=== PATIENT | male | born 1945 | race Caucasian/White ===

== ENCOUNTER 2016-08-14 13:06 | Inpatient (IN) | payer OTHER ==
[~2016-08-14] VITALS: Ht 175.3 cm; Wt 160.0 kg
[~2016-08-14 13:06] MED LIST: ADULT LOW DOSE81 M1 PO; ATORVASTATIN CA20 MG PO; CELEBREX200 MG PO; CITRUCEL500 MG PO; COL-RITE100 M1 PO; COUMADIN1 MG PO; DOCUSATE SODIU100 MG PO; FERROUS SULFAT325 MG PO; FIBER1 GM PO; FLUTICASONE PRO16 GM BOTH NARES; FUROSEMIDE20 MG PO; FUROSEMIDE40 MG PO; GLUCOPHAGE XR,500 MG PO; K-DUR20 MEQ PO; K-TAB10 MEQ PO; KLOR-CON 1010 ME1 PO; LISINOPRIL-HCT1 EAC3 PO; LORATADINE10 M2 PO; LORTAB 5-325 M1 EACH PO; LOVENOX40 MG/0.4 SC; MEN'S MULTI-VI1 EACH PO; METFORMIN HCL500 MG PO; METOPROLOL TART50 MG PO; MOTRIN600 MG PO; NOVOLOG PE100 UNITS/ SC; OXYCODONE HCL5 MG PO; PRAVASTATIN SOD80 MG PO; ROCEPHIN2 GM/50 ML IV; SENNA-TIME S T1 EACH PO; TRAMADOL HCL50 MG PO; ZESTORETIC 20-1 EAC1 NG; [UNRECOGNIZED DRUG - OTHER] PO
[2016-08-14 14:04] LABS: EOSINOPHIL (%) 0 % (0-5); HEMATOCRIT 40.3 % (38.0-50.0); IMMATURE GRANULOCYTE (%) 0.7 % (0.0-0.7); IMMATURE GRANULOCYTE COUNT 0.1 K/uL; INSTRUMENT ABS NEUTROPHIL CT 17.8 K/uL; LYMPHOCYTE COUNT 0.6 K/uL (1.0-2.8); MCH 30.1 PG (29.0-34.0); MCV 88.6 FL (86-99); MONOCYTE (%) 3.6 % (3-12); MONOCYTE COUNT 0.7 K/uL (0-0.8); NEUTROPHIL (%) 92.6 % (45-76); NEUTROPHIL COUNT 17.8 K/uL (1.8-6.4); PLATELET COUNT 265 K/uL (156-360); RBC DIS.WIDTH-SD 38.5 % (39-53); RED BLOOD COUNT 4.55 M/uL (4.00-5.50); WHITE BLOOD COUNT 19.2 K/uL (4.1-10.2)
[2016-08-14 14:11] LABS: ADD MIUA? YES; BILIRUBIN NEGATIVE; BLOOD SMALL; COLOR YELLOW ((YELLOW)); GLUCOSE (STRIP) 50; INFLUENZA A VIRAL ANTIGEN NEGATIVE; INFLUENZA B VIRAL ANTIGEN NEGATIVE; KETONES 5; LEUKOCYTES LARGE; NITRITE NEGATIVE; PROTEIN (STRIP) 100; SPECIFIC GRAVITY 1.012 (1.000-1.030); UROBILINOGEN 0.2 MG/DL (0.2-1.0)
[2016-08-14 14:20] LABS: CHLORIDE 94 mEq/L (99-109); POTASSIUM 3.6 mEq/L (3.7-5.4); SODIUM 133 mEq/L (136-147)
[2016-08-14 14:22] LABS: GLUCOSE 204 mg/dL (70-99)
[2016-08-14 14:23] LABS: ANION GAP 14 MEQ/L (2-14)
[2016-08-14 14:24] LABS: TOTAL BILIRUBIN 1.7 mg/dL (0.0-1.0)
[2016-08-14 14:26] LABS: ALKALINE PHOSPHATASE 65 IU/L (3-129); GFR ESTIMATE (CALCULATED) > 59 mL/min/
[2016-08-14 14:27] LABS: UREA NITROGEN (BUN) 12 mg/dL (9-23)
[2016-08-14 14:27] LABS: BACTERIA 3+ /HPF; EPITHELIAL CELLS NONE SEEN /HPF; MUCUS NONE SEEN /LPF; RED BLOOD CELLS 0-5 /HPF (0-5); UCUL ADDED? YES; WHITE BLOOD CELLS TNTC /HPF (0-5); WHITE BLOOD CELLS CLUMP FEW /HPF (0-5)
[2016-08-14 14:29] LABS: LIPASE 11 U/L (1.0-51.0)
[2016-08-14] MEDS ORDERED: ZESTORETIC 20-1 EAC1 PO (16:10)
[2016-08-14] MEDS ORDERED: VITAMIN B-6100 MG PO (16:11)
[2016-08-14] MEDS ORDERED: ZINC50 M2 PO (16:11)
[2016-08-14] MEDS ORDERED: VITAMIN A8000 UNIT PO (16:11)
[2016-08-14] MEDS ORDERED: STOOL SOFTENER100 M1 PO (16:12)
[2016-08-14] MEDS ORDERED: FIBER THERAPY500 MG PO (16:13)
[2016-08-14] MEDS ORDERED: METFORMIN HCL500 M1 PO (16:14)
[2016-08-14] MEDS ORDERED: TRAMADOL HCL50 MG PO (16:16)
[2016-08-14] MEDS ORDERED: ALEVE220 MG PO (16:16)
[2016-08-14] MEDS ORDERED: MUCINEX600 MG PO (16:17)
[2016-08-14] MEDS ORDERED: CLARITIN,ALAVAR10 MG PO (16:17)
[2016-08-14] MEDS ORDERED: HYDROXYZINE HCL25 MG PO (16:18)
[2016-08-14] MEDS ORDERED: [UNRECOGNIZED DRUG - OTHER] TP (16:20)
[2016-08-14] MEDS ORDERED: AFRIN,GENASAL D15 ML BOTH NARES (16:20)
[2016-08-14] MEDS ORDERED: AQUAPHOR W-NAT50 GM TP (16:20)
[2016-08-14] MEDS ORDERED: EYE DROPS15 M1 BOTH EYES (16:21)
[2016-08-14 17:56] VITALS: BP 135/75
[2016-08-14 17:56] LABS: Estimated Average Glucose 194 mg/dL (70-123); HEMOGLOBIN A1c (GLYCOHEMOGLOB) 8.4 % HGB (Below 5.7)
[2016-08-14 18:02] VITALS: BP 135/75
[2016-08-14 20:00] VITALS: BP 136/65
[2016-08-14 21:24] LABS: POINT-OF-CARE METER ID UU14188625
[2016-08-14 23:40] VITALS: BP 136/70
[2016-08-15] VITALS (12 sets, daily range): BP systolic 107–142; BP diastolic 50–72
[2016-08-15 07:44] LABS: HEMATOCRIT 37.5 % (38.0-50.0); MCH 30.6 PG (29.0-34.0); MCHC 33.9 G/DL (30.0-36.0); MCV 90.4 FL (86-99); MEAN PLAT.VOLUME 9.9 uM^3 (9.0-12.4); PLATELET COUNT 243 K/uL (156-360); RBC DIS.WIDTH-CV 12.4 % (11.8-14.6); RBC DIS.WIDTH-SD 40.5 % (39-53); RED BLOOD COUNT 4.15 M/uL (4.00-5.50)
[2016-08-15 08:53] LABS: ANION GAP 11 MEQ/L (2-14); CHLORIDE 97 MEQ/L (99-109); GFR ESTIMATE (CALCULATED) > 59 mL/min/; GLUCOSE 156 mg/dL (70-99); POTASSIUM 3.6 MEQ/L (3.7-5.4); SAMPLE HEMOLYSIS CHECK 0; SAMPLE ICTERIC CHECK 0; SAMPLE LIPEMIA CHECK 0; SODIUM 135 MEQ/L (136-147); UREA NITROGEN (BUN) 12 mg/dL (9-23)
[2016-08-15 13:13] LABS: BASE EXCESS -0.1 mEq/L (-3 to +3); BICARBONATE 26.4 mEq/L (22-26); CARBOXY HGB 2.5 % (0-5); COMMENTS - BLOOD GASES A+C+; METHEMOGLOBIN 1.5 % (0-1.5); PCO2 49 mm Hg (35-45); PO2 116 mm Hg (80-100); SITE LRA; pH 7.34 (7.35-7.45)
[2016-08-15 13:14] LABS: DEVICE NRBR; O2 FLOW 15 L/MIN; TOTAL RESP RATE 36 resp/min
[2016-08-15 13:15] LABS: POINT-OF-CARE METER ID UU14188625
[2016-08-15 13:25] LABS: MCH 29.8 PG (29.0-34.0); MCHC 32.4 G/DL (30.0-36.0); MCV 91.9 FL (86-99); MEAN PLAT.VOLUME 9.2 uM^3 (9.0-12.4); PLATELET COUNT 257 K/uL (156-360); RBC DIS.WIDTH-CV 12.6 % (11.8-14.6); RBC DIS.WIDTH-SD 42.5 % (39-53); RED BLOOD COUNT 4.46 M/uL (4.00-5.50); WHITE BLOOD COUNT 14.9 K/uL (4.1-10.2)
[2016-08-15 13:47] LABS: ANION GAP 8 MEQ/L (2-14); CHLORIDE 97 MEQ/L (99-109); GFR ESTIMATE (CALCULATED) > 59 mL/min/; GLUCOSE 163 mg/dL (70-99); POTASSIUM 3.9 MEQ/L (3.7-5.4); SAMPLE HEMOLYSIS CHECK 0; SAMPLE ICTERIC CHECK 0; SAMPLE LIPEMIA CHECK 0; SODIUM 134 MEQ/L (136-147); UREA NITROGEN (BUN) 14 mg/dL (9-23)
[2016-08-15 16:45] LABS: METH RESISTANT S AUREUS PCR POSITIVE (NEGATIVE); PROBE CHECK PASS
[2016-08-15 21:59] LABS: POINT-OF-CARE METER ID UU13113803
[2016-08-16] VITALS (8 sets, daily range): BP systolic 125–159; BP diastolic 59–93
[2016-08-16 05:55] LABS: EOSINOPHIL (%) 1.1 % (0-5); EOSINOPHIL COUNT 0.1 K/uL (0-0.3); HEMATOCRIT 35.4 % (38.0-50.0); IMMATURE GRANULOCYTE (%) 0.5 % (0.0-0.7); IMMATURE GRANULOCYTE COUNT 0.1 K/uL; INSTRUMENT ABS NEUTROPHIL CT 8.8 K/uL; LYMPHOCYTE COUNT 1.4 K/uL (1.0-2.8); MCH 29.6 PG (29.0-34.0); MCHC 32.8 G/DL (30.0-36.0); MCV 90.3 FL (86-99); MEAN PLAT.VOLUME 9.3 uM^3 (9.0-12.4); MONOCYTE COUNT 0.7 K/uL (0-0.8); NEUTROPHIL (%) 79.6 % (45-76); NEUTROPHIL COUNT 8.8 K/uL (1.8-6.4); PLATELET COUNT 208 K/uL (156-360); RBC DIS.WIDTH-CV 12.5 % (11.8-14.6); RBC DIS.WIDTH-SD 41.1 % (39-53); RED BLOOD COUNT 3.92 M/uL (4.00-5.50)
[2016-08-16 06:14] LABS: ANION GAP 7 MEQ/L (2-14); CHLORIDE 98 MEQ/L (99-109); GFR ESTIMATE (CALCULATED) > 59 mL/min/; GLUCOSE 194 mg/dL (70-99); SAMPLE HEMOLYSIS CHECK 0; SAMPLE ICTERIC CHECK 0; SAMPLE LIPEMIA CHECK 0; SODIUM 137 MEQ/L (136-147); UREA NITROGEN (BUN) 17 mg/dL (9-23)
[2016-08-16 06:15] LABS: POTASSIUM 2.9 MEQ/L (3.7-5.4)
[2016-08-16 12:43] LABS: POINT-OF-CARE METER ID UU13113731
[2016-08-16 18:03] LABS: POINT-OF-CARE METER ID UU13113731
[2016-08-16 20:51] LABS: POINT-OF-CARE METER ID UU13113731
[2016-08-17] VITALS: BP 152/82
[2016-08-17 04:54] VITALS: BP 159/85
[2016-08-17 06:11] LABS: BASOPHIL COUNT 0.1 K/uL (0-0.1); EOSINOPHIL (%) 3.3 % (0-5); EOSINOPHIL COUNT 0.3 K/uL (0-0.3); HEMATOCRIT 38.4 % (38.0-50.0); IMMATURE GRANULOCYTE (%) 0.5 % (0.0-0.7); IMMATURE GRANULOCYTE COUNT 0.1 K/uL; INSTRUMENT ABS NEUTROPHIL CT 6.8 K/uL; MCH 29.3 PG (29.0-34.0); MCHC 32.8 G/DL (30.0-36.0); MCV 89.3 FL (86-99); MEAN PLAT.VOLUME 9.7 uM^3 (9.0-12.4); MONOCYTE (%) 5.9 % (3-12); MONOCYTE COUNT 0.6 K/uL (0-0.8); NEUTROPHIL (%) 69.6 % (45-76); NEUTROPHIL COUNT 6.8 K/uL (1.8-6.4); PLATELET COUNT 230 K/uL (156-360); RBC DIS.WIDTH-CV 12.4 % (11.8-14.6); WHITE BLOOD COUNT 9.8 K/uL (4.1-10.2)
[2016-08-17 06:32] LABS: ANION GAP 10 MEQ/L (2-14); CHLORIDE 93 MEQ/L (99-109); GFR ESTIMATE (CALCULATED) > 59 mL/min/; GLUCOSE 188 mg/dL (70-99); MAGNESIUM 1.4 mg/dl (1.3-2.7); POTASSIUM 2.9 MEQ/L (3.7-5.4); SAMPLE HEMOLYSIS CHECK 0; SAMPLE ICTERIC CHECK 0; SAMPLE LIPEMIA CHECK 0; SODIUM 133 MEQ/L (136-147); UREA NITROGEN (BUN) 18 mg/dL (9-23)
[2016-08-17 07:31] VITALS: BP 158/84
[2016-08-17 09:40] LABS: POINT-OF-CARE METER ID UU13113698
[2016-08-17 11:07] VITALS: BP 149/87
[2016-08-17 11:57] LABS: POINT-OF-CARE METER ID UU13113698
[2016-08-17 16:18] VITALS: BP 151/90
[2016-08-17 20:47] VITALS: BP 172/79
[2016-08-17 21:31] LABS: POINT-OF-CARE METER ID UU14174225
[2016-08-18 00:17] VITALS: BP 173/87
[2016-08-18 04:08] VITALS: BP 140/75
[2016-08-18 08:06] VITALS: BP 143/90
[2016-08-18 08:35] LABS: POINT-OF-CARE METER ID UU14188625
[2016-08-18 13:45] VITALS: BP 155/93
[2016-08-18 16:58] LABS: POINT-OF-CARE METER ID UU14188625
[2016-08-18 19:37] VITALS: BP 165/68
[2016-08-18 21:41] LABS: POINT-OF-CARE METER ID UU14188625
[2016-08-19 00:36] VITALS: BP 153/80
[2016-08-19 04:21] VITALS: BP 151/77
[2016-08-19 11:24] LABS: ANION GAP 10 MEQ/L (2-14); CHLORIDE 95 MEQ/L (99-109); GFR ESTIMATE (CALCULATED) > 59 mL/min/; GLUCOSE 272 mg/dL (70-99); SAMPLE HEMOLYSIS CHECK 0; SAMPLE ICTERIC CHECK 0; SAMPLE LIPEMIA CHECK 0; SODIUM 134 MEQ/L (136-147); UREA NITROGEN (BUN) 14 mg/dL (9-23)
[2016-08-19 11:25] LABS: POTASSIUM 3.7 MEQ/L (3.7-5.4)
[2016-08-19] MEDS ORDERED: ATORVASTATIN CA20 MG PO (11:54)
[2016-08-19] MEDS ORDERED: FLORASTOR250 MG PO (11:55)
[2016-08-19] MEDS ORDERED: ZINC OXIDE56.7 GM TP (11:56)
[2016-08-19] MEDS ORDERED: BACTROBAN OINTM22 GM TP (11:56)
[2016-08-19] MEDS ORDERED: BACTRIM,SEPT1 TABLET PO (15:39)
== END 2016-08-19 17:31 | disposition home health service (06) | DRG 871 ==
LOC: EME 13:06 → 5SOUTH 15:32 → 4WEST 15:32 → EDOF 15:32 → 5SOUTH 17:35 → 4WEST 08-15 14:31 → 4SOUTH 08-17 03:18 → 5SOUTH 08-17 16:00
PROVIDERS: Emergency Medicine; Internal Medicine; Student in an Organized Health Care Education/Training Program
DX: A41.9 Sepsis, unspecified organism (principal); R65.20 Severe sepsis without septic shock; J96.01 Acute respiratory failure with hypoxia; J81.0 Acute pulmonary edema; N39.0 Urinary tract infection, site not specified; L03.115 Cellulitis of right lower limb; B95.62 Methicillin resistant Staphylococcus aureus infection as the cause of diseases classified elsewhere; E87.6 Hypokalemia; E87.1 Hypo-osmolality and hyponatremia; I87.313 Chronic venous hypertension (idiopathic) with ulcer of bilateral lower extremity; L97.911 Non-pressure chronic ulcer of unspecified part of right lower leg limited to breakdown of skin; L97.921 Non-pressure chronic ulcer of unspecified part of left lower leg limited to breakdown of skin; L89.322 Pressure ulcer of left buttock, stage 2; G93.41 Metabolic encephalopathy; G47.33 Obstructive sleep apnea (adult) (pediatric); I51.7 Cardiomegaly; I89.0 Lymphedema, not elsewhere classified; E11.9 Type 2 diabetes mellitus without complications; M54.5 Low back pain; G89.29 Other chronic pain; N31.9 Neuromuscular dysfunction of bladder, unspecified; N40.1 Benign prostatic hyperplasia with lower urinary tract symptoms; R33.8 Other retention of urine; M81.0 Age-related osteoporosis without current pathological fracture; E78.5 Hyperlipidemia, unspecified; I10 Essential (primary) hypertension; E66.01 Morbid (severe) obesity due to excess calories; Z68.42 Body mass index [BMI] 45.0-49.9, adult; M19.90 Unspecified osteoarthritis, unspecified site; Z96.641 Presence of right artificial hip joint
CPT/HCPCS: 36600; 71010; 71020; 80048; 80048 91; 80053; 80202; 81003; 82803; 82948; 83036; 83605; 83690; 83735; 84132 91; 85025; 85027; 87040; 87070; 87075; 87077; 87086; 87147; 87186; 87205; 87502; 87641; 93005; 93306; 93970; 94799; 99281; 99285; J0690; J0692; J0696; J1644; J1815; J1940; J2270; J3370; J7030; J7050; Q0177

== ENCOUNTER 2017-11-08 06:46 | Emergency (ER) | payer OTHER ==
[~2017-11-08] VITALS: Ht 180.3 cm; Wt 144.2 kg
[~2017-11-08 06:46] MED LIST changes: +AFRIN,GENASAL D15 ML BOTH NARES; +ALEVE220 MG PO; +AQUAPHOR W-NAT50 GM TP; +BACTRIM,SEPT1 TABLET PO; +BACTROBAN OINTM22 GM TP; +CLARITIN,ALAVAR10 MG PO; +EYE DROPS15 M1 BOTH EYES; +FIBER THERAPY500 MG PO; +FLORASTOR250 MG PO; +HYDROXYZINE HCL25 MG PO; +METFORMIN HCL500 M1 PO; +MUCINEX600 MG PO; +STOOL SOFTENER100 M1 PO; +VITAMIN A8000 UNIT PO; +VITAMIN B-6100 MG PO; +ZESTORETIC 20-1 EAC1 PO; +ZINC OXIDE56.7 GM TP; +ZINC50 M2 PO; +[UNRECOGNIZED DRUG - OTHER] TP
[2017-11-08 08:08] LABS: APPEARANCE CLEAR ((CLEAR)); BILIRUBIN NEGATIVE; BLOOD NEGATIVE; COLOR STRAW ((YELLOW)); GLUCOSE (STRIP) 150; KETONES NEGATIVE; LEUKOCYTES NEGATIVE; NITRITE NEGATIVE; PROTEIN (STRIP) 30; UCUL ADDED? NO; UROBILINOGEN 0.2 MG/DL (0.2-1.0)
[2017-11-08] MEDS ORDERED: ROBAXIN750 MG PO ×2 (08:23→09:30)
[2017-11-08] MEDS ORDERED: LIDODERM 5% P1 PATCH TD ×2 (08:23→09:30)
[2017-11-08] MEDS ORDERED: ULTRAM50 MG PO (09:30)
[2017-11-08 09:52] VITALS: BP 165/83
== END 2017-11-08 09:54 | disposition home or self-care (01) ==
LOC: EME 06:46
PROVIDERS: Emergency Medicine
DX: M54.5 Low back pain (principal); M79.605 Pain in left leg; I10 Essential (primary) hypertension; E11.9 Type 2 diabetes mellitus without complications; Z79.84 Long term (current) use of oral hypoglycemic drugs; Z87.891 Personal history of nicotine dependence
CPT/HCPCS: 81003; 99281; 99284; J1885; J2270

== ENCOUNTER 2017-11-16 10:23 | Emergency (ER) | payer OTHER ==
[~2017-11-16] VITALS: Ht 180.3 cm; Wt 142.7 kg
[~2017-11-16 10:23] MED LIST changes: +LIDODERM 5% P1 PATCH TD; +ROBAXIN750 MG PO; +ULTRAM50 MG PO
[2017-11-16 11:06] LABS: APPEARANCE CLEAR ((CLEAR)); BILIRUBIN NEGATIVE; BLOOD NEGATIVE; COLOR YELLOW ((YELLOW)); GLUCOSE (STRIP) 50; KETONES NEGATIVE; LEUKOCYTES TRACE; NITRITE POSITIVE; PROTEIN (STRIP) 30; SPECIFIC GRAVITY 1.008 (1.000-1.030); UROBILINOGEN 0.2 MG/DL (0.2-1.0)
[2017-11-16 11:11] LABS: BASOPHIL (%) 0.5 % (0-1); BASOPHIL COUNT 0.1 K/uL (0-0.1); EOSINOPHIL (%) 0.8 % (0-5); EOSINOPHIL COUNT 0.1 K/uL (0-0.3); HEMOGLOBIN 14.2 G/DL (12.5-16.6); IMMATURE GRANULOCYTE (%) 0.3 % (0.0-0.7); LYMPHOCYTE COUNT 1.7 K/uL (1.0-2.8); MCH 30.3 PG (29.0-34.0); MCHC 33.8 G/DL (30.0-36.0); MCV 89.6 FL (86-99); MONOCYTE (%) 5.3 % (3-12); MONOCYTE COUNT 0.6 K/uL (0-0.8); NEUTROPHIL (%) 78.1 % (45-76); NEUTROPHIL COUNT 8.6 K/uL (1.8-6.4); PLATELET COUNT 315 K/uL (156-360); RBC DIS.WIDTH-CV 12.3 % (11.8-14.6); RBC DIS.WIDTH-SD 40.1 % (39-53); RED BLOOD COUNT 4.69 M/uL (4.00-5.50)
[2017-11-16 11:16] LABS: CHLORIDE 94 mEq/L (99-109); POTASSIUM 3.8 mEq/L (3.7-5.4); SODIUM 135 mEq/L (136-147)
[2017-11-16 11:17] LABS: GLUCOSE 188 mg/dL (70-99)
[2017-11-16 11:21] LABS: CREATININE 0.8 mg/dL (0.6-1.3); GFR ESTIMATE (CALCULATED) > 59 mL/min/ (58.99-99999)
[2017-11-16 11:22] LABS: UREA NITROGEN (BUN) 10 mg/dL (9-23)
[2017-11-16 11:30] LABS: RED BLOOD CELLS NONE SEEN /HPF (0-5)
[2017-11-16 11:31] LABS: BACTERIA 1+ /HPF; EPITHELIAL CELLS NONE SEEN /HPF; MUCUS RARE /LPF; WHITE BLOOD CELLS 0-5 /HPF (0-5)
[2017-11-16 14:30] VITALS: BP 165/77
[2017-11-16] MEDS ORDERED: PERCOCET 5/31 TABLET PO (14:34)
[2017-11-16] MEDS ORDERED: CIPRO500 MG PO (14:46)
[2017-11-16] MEDS ORDERED: BACTRIM,SEPT1 TABLET PO (14:52)
== END 2017-11-16 15:05 | disposition home or self-care (01) ==
LOC: EME 10:23
PROVIDERS: Emergency Medicine
DX: M51.26 Other intervertebral disc displacement, lumbar region (principal); N39.0 Urinary tract infection, site not specified; M79.605 Pain in left leg; M48.061 Spinal stenosis, lumbar region without neurogenic claudication; I10 Essential (primary) hypertension; E11.9 Type 2 diabetes mellitus without complications; Z79.84 Long term (current) use of oral hypoglycemic drugs; Z96.641 Presence of right artificial hip joint; Z88.0 Allergy status to penicillin; Z88.1 Allergy status to other antibiotic agents; Z87.891 Personal history of nicotine dependence
CPT/HCPCS: 72158; 80048; 81003; 85025; 87077; 87086; 87186; 99281; 99284; J3010